=== PATIENT | male | born 1965 | race Caucasian/White ===

== ENCOUNTER 2020-06-30 08:26 | Outpatient (REF) | payer OTHER, SELFPAY ==
--- NOTE | 2020-06-30 08:28 | CT_ITS ---
EXAMINATION: CT ABDOMEN AND PELVIS WITHOUT CONTRAST CLINICAL INFORMATION: Unilateral inguinal hernia COMPARISON: None TECHNIQUE: Multidetector volumetric imaging was performed from the superior aspect of the liver through the pubic symphysis. Sagittal and coronal reformatted images were obtained on the technologist's workstation. This CT examination was performed using dose optimization techniques as appropriate, variously including the following: *Automated exposure control *Adjustment of mA and/or kV according to patient size (this includes techniques or standardized protocols for targeted exams where dose is matched to indication/reason for exam; i.e. extremities or head) *Use of iterative reconstruction technique DLP: 405 mGy-cm FINDINGS: LUNG BASES: The visualized lung bases are unremarkable. No pleural or pericardial effusion identified. LIVER, GALLBLADDER, AND BILIARY TREE: The liver is normal in size, shape, and attenuation. No focal hepatic lesion or biliary ductal dilatation is present. The gallbladder is unremarkable with no evidence of radiopaque gallstones, gallbladder wall thickening, or obvious pericholecystic inflammatory changes. PANCREAS: Unremarkable. SPLEEN: Unremarkable. ADRENAL GLANDS: Unremarkable. KIDNEYS AND URETERS: The kidneys are normal in size, shape, and attenuation. No hydronephrosis, hydroureter, or calculi seen. No significant perinephric stranding. There is a region of cortical thinning within the upper pole related to scarring. BLADDER: Unremarkable. GASTROINTESTINAL TRACT: No dilated loops of large or small bowel are evident. No free abdominal air. No free fluid. No pericolonic inflammatory change. Appendix is visualized without evidence of acute appendicitis. ABDOMINAL WALL: There appear to be bilateral fat-containing direct inguinal hernias right greater than left with lateral crescent sign. No abnormal fluid collection is identified. No significant inflammatory stranding within the fat is seen. LYMPH NODES: No lymphadenopathy is appreciated. VASCULAR: Unremarkable. PELVIC VISCERA: Unremarkable. OSSEOUS STRUCTURES: No suspicious destructive bony lesion identified. There is multilevel degenerative disc disease seen L2 through S1. There is bilateral facet arthropathy seen at the L5-S1 level. CT/CT abdomen pelvis wo con IMPRESSION: Small bilateral fat-containing direct inguinal hernias right greater than left.
== END 2020-06-30 08:27 | disposition home or self-care (01) ==
LOC: HO.CT 08:26
PROVIDERS: PCP Nurse Practitioner Family; Visit Provider Nurse Practitioner Family
DX: K40.90 Unilateral inguinal hernia, without obstruction or gangrene, not specified as recurrent (principal)
CPT/HCPCS: 74176

== ENCOUNTER 2020-10-12 08:14 | Outpatient (REF) | payer OTHER, SELFPAY ==
[2020-10-12 11:40] LABS: Alanine Aminotransferase 19 U/L (0-40); Albumin Level 4.3 g/dL (3.5-5.0); Alkaline Phosphatase 112 U/L (39-117); Anion Gap 12 (12-20); Aspartate Amino Transferase 19 U/L (5-37); Bilirubin Total 0.6 mg/dL (0.0-1.0); Blood Urea Nitrogen 15 mg/dL (9-16); Calcium 8.9 mg/dL (8.4-10.2); Carbon Dioxide 30 mmol/L (22-29); Chloride 104 mmol/L (96-108); Cholesterol 223 mg/dL; Estimated Glomerular Filt Rate > 60; Glucose Fasting 89 mg/dL (60-99); HDL Cholesterol 42 mg/dL; LDL Cholesterol Calculated 160 mg/dl; Potassium 4.8 mmol/L (3.3-5.1); Sodium 141 mmol/L (135-145); Total Protein 7.2 g/dL (6.5-8.0); Triglycerides 109 mg/dL
[2020-10-12 12:04] LABS: Prostate Specific Antigen Scr 1.03 ng/mL (<0.05-4.0); TSH reflex Free T4 1.52 uIU/mL (0.32-4.0)
== END 2020-10-12 08:15 | disposition home or self-care (01) ==
LOC: HO.HMGCLDS 08:14
PROVIDERS: PCP Nurse Practitioner Family; Visit Provider Nurse Practitioner Family
DX: Z00.00 Encounter for general adult medical examination without abnormal findings (principal); Z12.5 Encounter for screening for malignant neoplasm of prostate
CPT/HCPCS: 36415; 80053; 80061; 84153; 84443

== ENCOUNTER → 2020-10-26 12:49 | Outpatient (BNVA) | payer OTHER, SELFPAY | PROVIDERS: PCP Nurse Practitioner Family; Visit Provider Surgery | DX: K40.20 Bilateral inguinal hernia, without obstruction or gangrene, not specified as recurrent (principal) | CPT/HCPCS: 99202 ==

== ENCOUNTER 2021-09-18 10:44 | Outpatient (REF) | payer OTHER, SELFPAY ==
[2021-09-18 14:01] LABS: Cholesterol 233 mg/dL; HDL Cholesterol 41 mg/dL; LDL Cholesterol Calculated 172 mg/dl; Triglycerides 100 mg/dL
== END 2021-09-18 10:45 | disposition home or self-care (01) ==
LOC: HO.HMGCLDS 10:44
PROVIDERS: Visit Provider Nurse Practitioner Family
DX: E78.5 Hyperlipidemia, unspecified (principal)
CPT/HCPCS: 36415; 80061

== ENCOUNTER 2021-10-03 11:30 | Outpatient (REF) | payer OTHER, SELFPAY ==
[2021-10-03 12:30] LABS: MANUAL DIFF FLAG NO
[2021-10-03 12:52] LABS: Basophils Absolute Auto 0.1 X10*3/uL (0.0-0.2); Basophils Percent Auto 0.7 % (0-2); Eosinophils Absolute Auto 0.1 X10*3/uL (0.0-0.4); Eosinophils Percent Auto 1.3 % (0-4); Hematocrit 43.3 % (42.0-52.0); Hemoglobin 13.6 g/dl (14.0-18.0); Imm Gran Abs Auto 0.02 X10*3/uL (0.00-0.03); Imm Gran Pct Auto 0.3 % (0.0-0.4); Lymphocytes Percent Auto 27.7 % (20-40); Mean Corpuscular HGB Conc 31.4 g/dl (31.0-36.0); Mean Corpuscular Hemoglobin 28.9 pg (27.0-33.0); Mean Corpuscular Volume 92.1 fL (80.0-98.0); Mean Platelet Volume 10.3 fL (9.4-12.4); Monocytes Absolute Auto 0.7 X10*3/uL (0.1-1.2); Monocytes Percent Auto 10.1 % (2-11); Neutrophils Absolute Auto 4.3 x10*3/uL (2.0-8.3); Neutrophils Percent Auto 59.9 % (45-73); Platelet Count 311 X10*3/uL (160-400); Red Cell Distribution Width 14.9 % (11.0-16.0); White Blood Count 7.2 X10*3/uL (4.8-10.8)
[2021-10-03 13:54] LABS: Alanine Aminotransferase 28 U/L (0-40); Albumin Level 4.3 g/dL (3.5-5.0); Alkaline Phosphatase 146 U/L (39-117); Anion Gap 13 (12-20); Aspartate Amino Transferase 22 U/L (5-37); Bilirubin Total 0.2 mg/dL (0.0-1.0); Blood Urea Nitrogen 20 mg/dL (9-16); Carbon Dioxide 29 mmol/L (22-29); Chloride 105 mmol/L (96-108); Estimated Glomerular Filt Rate > 60; Glucose Random 97 mg/dL (60-115); Potassium 5.9 mmol/L (3.3-5.1); Sodium 141 mmol/L (135-145); Total Protein 7.4 g/dL (6.5-8.0)
[2021-10-04 08:19] LABS: HBsAGNum1 0.24 S/CO (0.00-0.99); HIV AB/AG Nonreactive (Nonreactive); HIV Num 1 0.08 S/CO (0.00-0.99); Hepatitis B Surface Antigen Negative (Negative)
[2021-10-04 10:05] LABS: HBS Num1 0.15 mIU/mL (0-7.99); HBc Num1 0.13 S/CO (0.00-0.79); Hepatitis B Core Antibody Nonreactive (Nonreactive); ~HepC Num1 0.08 S/CO (0.00-0.79); ~Hepatitis B Surface Antibody NONREACTIVE (Nonreactive); ~Hepatitis C Antibody Nonreactive (Nonreactive)
[2021-10-06 08:57] LABS: Hepatitis A Antibody IgM 0.18 Index (0-0.79); ~Hepatitis A Antibody IgM Nonreactive (Nonreactive)
== END 2021-10-03 11:31 | disposition home or self-care (01) ==
LOC: HO.LAB 11:30
PROVIDERS: PCP Nurse Practitioner Family; Referring Provider Nurse Practitioner Family; Visit Provider Nurse Practitioner
DX: Z11.4 Encounter for screening for human immunodeficiency virus [HIV] (principal); F11.20 Opioid dependence, uncomplicated; F19.10 Other psychoactive substance abuse, uncomplicated; Z80.0 Family history of malignant neoplasm of digestive organs
CPT/HCPCS: 36415; 80053; 85025; 86704; 86706; 86709; 86803; 87340; 87389; 99202

== ENCOUNTER 2022-01-03 09:36 | Day surgery (SDC) | payer OTHER, SELFPAY ==
[2021-12-29 14:01] VITALS: BMI 26.5
--- NOTE | 2022-01-02 13:30 | HO.ANESPROP2 ---
HPI - Anesthesia Eval Consult details Narrative: 56yo F for Colonoscopy hx of polysub - suboxone daily, ? crack cocaine use PMF Active Problems Active Problems: All Active Problems (Updated 12/29/21 @ 14:00 by Evelyne Alonso RN) Right inguinal hernia (Acute) Bilateral inguinal hernia (Acute) Anxiety (Acute) Chest pain (Acute) Family history of colon cancer (Acute) Personal history of nicotine dependence (Acute) Opioid dependence (Acute) IV drug abuse (Acute) PTSD (post-traumatic stress disorder) (Acute) Dyslipidemia (Acute) Past Medical History Medical History Arthritis Back pain COPD (chronic obstructive pulmonary disease) Dizziness, nonspecific Dyslipidemia Family history of colon cancer History of femur fracture (~10/2020) History of fracture of left ankle (~10/2020) IV drug abuse Opioid dependence Personal history of nicotine dependence PTSD (post-traumatic stress disorder) Right inguinal hernia Family History Family History Father CVD (cardiovascular disease) Substance use disorder Mother Colon cancer Stroke Diabetes mellitus Substance use disorder Sister Mental health disorder Surgical History Surgical History History of colonoscopy History of hip surgery (~2020) History of total right hip arthroplasty (~2020) History of umbilical hernia repair (~1993) Social History Social History (Updated 12/29/21 @ 13:58 by Evelyne Alonso RN) Housing: House Alcohol intake: never Patient Tobacco Use Status: Current everyday Tobacco user Tobacco use type: Cigarette Cigarette Packs Per Day: 0.75 Cigarettes Per Day: 15.0 Years Smoked: 40 e-Cigarette/Vaping Use: Never Used Second Hand Smoke Exposure: No Substance Use Type: Crack/Cocaine, Former Substance User and Opiates service: No Current occupational status: unemployed Meds Allergies Allergy/AdvReac Type Severity Reaction Status Date / Time No Known Allergies Allergy Verified 10/24/21 12:22 [No Known Allergies*] Home Medications Medication Instructions Recorded Confirmed Last Taken Type dextroamphetamine-amphetamine ER 2 cap PO QAM 06/20/20 12/29/21 Unknown History 30 mg 24hr capsule,extend release gabapentin 300 mg capsule 300 mg PO DAILY PRN Pain, Moderate 12/29/20 12/29/21 Unknown History lidocaine 5 % topical patch 1 patch topical DAILY 12/29/20 12/29/21 Unknown History nicotine (polacrilex) 4 mg buccal 4 mg PO BID PRN Nicotine Cravings 12/29/20 12/29/21 Unknown History lozenge buprenorphine 8 mg-naloxone 2 mg 1 film sublingual BID 04/13/21 12/29/21 Unknown History sublingual film varenicline 0.5 mg tablet 0.5 mg PO DAILY 10/24/21 12/29/21 Unknown History Exam Exam Date and Time: January 02, 2022 1330 Height,Weight and Vital Signs: Height 5 ft 10 in Weight 83.915 kg Pertinent Lab Results Pertinent Lab Results: Laboratory Tests 10/03/21 12:28 WBC 7.2 Hgb 13.6 L Hct 43.3 Plt Count 311 Assessment and Plan Assessment Anesthesia Assessment: Chart Reviewed
[2022-01-03 10:08] VITALS: BP 123/105; PULSE 98; RESP 18; TEMP 36.8; O2SAT 96
--- NOTE | 2022-01-03 10:24 | MHC.SHP ---
Pre-Procedural Eval Section A Date of Service: 01/03/22 Section B Chief Complaint: FH of CRC-screening Relevant Family History (Specify if Yes): Yes Relevant Social History: Tobacco Use (cocaine use ) Present Medications: see Short Stay Collaborative assessment Medical History: Significant History (Arthritis Back pain COPD (chronic obstructive pulmonary disease) Dizziness, nonspecific Dyslipidemia Family history of colon cancer History of femur fracture (~10/2020) History of fracture of left ankle (~10/2020) IV drug abuse Opioid dependence Personal history of nicotine dependence PTSD (post-tra) History of Previous Operations: Relevant previous surgery/procedure and date(s) (History of colonoscopy History of hip surgery (~2020) History of total right hip arthroplasty (~2020) History of umbilical hernia repair (~1993)) Allergies: Allergies Allergy/AdvReac Type Severity Reaction Status Date / Time No Known Allergies Allergy Verified 10/24/21 12:22 [No Known Allergies*] Review of Systems Sugical H&P ROS: Negative: Constitution, Cardiovascular, Respiratory, Neurological, Psychiatric, Hem-Onc, Allergic/Immunologic, Gastrointestinal, Genitourinary, Musculoskeletal, Integumentary, Endocrine and Eyes/Ears/Nose/Throat Exam Surgical H&P Exam: Normal: HEENT, Normal: Heart, Normal: Lungs, Normal: Extremities, Normal: Abdomen, Normal: Skin and Normal: Neurological Plan Diagnosis/Plan: Unchanged I have reviewed the history and physical and performed a pertinent physical examination on my patient. No changes have occurred unless specified.
[2022-01-03 10:25] LABS: Anion Gap 15 (12-20); Carbon Dioxide 24 mmol/L (22-29); Chloride 105 mmol/L (96-108); Potassium 4.7 mmol/L (3.3-5.1); Sodium 139 mmol/L (135-145)
[2022-01-03 10:28] LABS: Amphetamine Screen Urine POSITIVE (Not Detect); Barbiturates, Urine Not Detected (Not Detect); Benzodiazepines Screen Urine Not Detected (Not Detect); Cannabinoid Screen Urine POSITIVE (Not Detect); Cocaine Screen Urine Not Detected (Not Detect); Fentanyl, urine Not Detected (Not Detect); Opiate Screen Urine Not Detected (Not Detect); Phencyclidine Screen Urine Not Detected (Not Detect)
--- NOTE | 2022-01-03 10:32 | P.CONAN_ITS ---
[facility] Active Problems Active Problems: All Active Problems (Updated 12/29/21 @ 14:00 by Evelyne Alonso RN) Right inguinal hernia (Acute) Bilateral inguinal hernia (Acute) Anxiety (Acute) Chest pain (Acute) Family history of colon cancer (Acute) Personal history of nicotine dependence (Acute) Opioid dependence (Acute) IV drug abuse (Acute) PTSD (post-traumatic stress disorder) (Acute) Dyslipidemia (Acute) Past Medical History Medical History Arthritis Back pain COPD (chronic obstructive pulmonary disease) Dizziness, nonspecific Dyslipidemia Family history of colon cancer History of femur fracture (~10/2020) History of fracture of left ankle (~10/2020) IV drug abuse Opioid dependence Personal history of nicotine dependence PTSD (post-traumatic stress disorder) Right inguinal hernia Family History Family History Father CVD (cardiovascular disease) Substance use disorder Mother Colon cancer Stroke Diabetes mellitus Substance use disorder Sister Mental health disorder Family history of problems with anesthesia: No Surgical History Surgical History History of colonoscopy History of hip surgery (~2020) History of total right hip arthroplasty (~2020) History of umbilical hernia repair (~1993) History of Problems with Anesthesia: No Social History Social History (Updated 12/29/21 @ 13:58 by Evelyne Alonso RN) Housing: House Alcohol intake: never Patient Tobacco Use Status: Current everyday Tobacco user Tobacco use type: Cigarette Cigarette Packs Per Day: 0.75 Cigarettes Per Day: 15.0 Years Smoked: 40 Smoked in Last 30 Days: Yes e-Cigarette/Vaping Use: Never Used Patient Interested in Nicotine Replacement: Yes Patient Given Instructions on How to Stop Smoking: Yes Date Education Initiated: 12/29/21 Second Hand Smoke Exposure: No Use of substances other than those prescribed or required for medical reasons: No Substance Use Type: Crack/Cocaine, Former Substance User and Opiates Substance Use Type Other:: COCAINE/IV OPIATE DRUG ABUSE Are you DNR?: No Advance Directives: No Advance Directives Information Provided: Yes Advance Directives on File: No Recently lost weight without trying: No Nutrition Risks: No Nutritional Risk service: No Current occupational status: unemployed Meds Allergies Allergy/AdvReac Type Severity Reaction Status Date / Time No Known Allergies Allergy Verified 10/24/21 12:22 [No Known Allergies*] Active Medications: Current Medications Albuterol Sulfate (Albuterol Sulfate (0.083%) 2.5 Mg/3 Ml Vial.Neb) 2.5 mg INHALE ONCE PRN PRN Reason: Shortness of Breath/Wheezing Lactated Ringer's (Lr) 1,000 mls @ 100 mls/hr IVCONT .Q10H [facility] Home Medications Medication Instructions Recorded Confirmed Last Taken Type dextroamphetamine-amphetamine ER 2 cap PO QAM 06/20/20 12/29/21 Unknown History 30 mg 24hr capsule,extend release gabapentin 300 mg capsule 300 mg PO DAILY PRN Pain, Moderate 12/29/20 12/29/21 Unknown History lidocaine 5 % topical patch 1 patch topical DAILY 12/29/20 12/29/21 Unknown History nicotine (polacrilex) 4 mg buccal 4 mg PO BID PRN Nicotine Cravings 12/29/20 12/29/21 Unknown History lozenge buprenorphine 8 mg-naloxone 2 mg 1 film sublingual BID 04/13/21 12/29/21 Unknown History sublingual film varenicline 0.5 mg tablet 0.5 mg PO DAILY 10/24/21 12/29/21 Unknown History Exam Exam Date and Time: January 03, 2022 1032 Height,Weight and Vital Signs: Height 5 ft 10 in Weight 83.915 kg Last Vital Signs Temp 98.3 F 01/03/22 10:08 Pulse 98 01/03/22 10:08 Resp 18 01/03/22 10:08 BP 123/105 H 01/03/22 10:08 Pulse Ox 96 01/03/22 10:08 O2 Del Method 01/03/22 10:08 Pertinent Lab Results Pertinent Lab Results: Laboratory Tests 01/03/22 01/03/22 09:35 10:06 Sodium 139 Potassium 4.7 D Chloride 105 Carbon Dioxide 24 Anion Gap 15 Urine Opiates Screen Not Detected Urine Fentanyl Screen Not Detected Ur Barbiturates Screen Not Detected Ur Phencyclidine Scrn Not Detected Ur Amphetamines Screen POSITIVE H U Benzodiazepines Scrn Not Detected Urine Cocaine Screen Not Detected U Marijuana (THC) Screen POSITIVE H Airway Mallampati Class: II TM Dist: >3cm Neck ROM: Full Heart: rrr Lungs: cta Assessment and Plan Assessment Anesthesia Assessment: Anesthesia Plan Discussed and Chart Reviewed Final Anesthetic Review Family History of Problems with Anesthesia: No History of Problems with Anesthesia: No NPO: Yes ASA Class: III Final Preanesthetic Review: No Changes in Pt Med Stat, Meds/Allgs Chart Reviewed and Consent Obtained/Reviewed Patient Risk: Intermediate Procedure Risk: Intermediate Anesthetic Plan Anesthetic Plan: MAC: Disposition: Standard PACU
[2022-01-03] MEDS: Lactated Ringers 1,000 ML 100 ML IVCONT (10:39)
--- NOTE | 2022-01-03 10:39 | P.BOP_ITS ---
Brief Operative Note Date of Service: 01/03/22 Pre-op diagnosis: FH of CRC-screening Post-op diagnosis: same Procedure: see op note Surgeon: Guanako Drew MD Anesthesia: MAC Was an Signals Officer used for this Procedure?: No Estimated blood loss (mL): 0 Condition: stable Disposition: PACU
--- NOTE | 2022-01-03 10:39 | P.OP_ITS ---
Operative Note Operative Note Date of Service: 01/03/22 Narrative: Operative Information Procedure Description: Colonoscopy Indication: FH of CRC-screening Anesthesia: MAC COLONOSCOPY Instrument: Olympus variable stiffness pediatric scope 190L Colonoscopy Monitoring: Vital signs and clinical assessment, continuous EKG monitoring, Pulse oximetry, Carbon Dioxide monitoring and blood pressure monitoring were done throughout the procedure. Colon withdrawal time was 10 minutes. Procedure: The patient was placed in the left lateral decubitis position and pre-procedure medications were administered. After a digital rectal examination of the ano-rectum, the video colonoscope was inserted into the rectum and advanced through the colon to the cecum/TI. The colonoscope was slowly withdrawn in a retrograde panoramic fashion and the colon mucosa was carefully examined including a retroflexed view of the rectum. Findings and interventions are described below. Procedure Difficulty: easy Findings: Terminal Ileum-normal Cecum:normal Ascending Colon: normal Transverse Colon -normal Descending Colon:normal Sigmoid Colon: few diverticula seen, 10 mm sessile polyp removed with cold snare Rectum: Retroflexion with small internal hemorrhoids, grade I Anorectum - normal Colon preparation: [place] Bowel Preparation Scale Right colon; 2 Transverse colon: 2 Left colon; 2 (0 = Unprepared colon segment with mucosa not seen due to solid stool that cannot be cleared. 1 = Portion of mucosa of the colon segment seen, but other areas of the colon segment not well seen due to staining, residual stool and/or opaque liquid. 2 = Minor amount of residual staining, small fragments of stool and/or opaque liquid, but mucosa of colon segment seen well. 3 = Entire mucosa of colon segment seen well with no residual staining, small fragments of stool or opaque liquid) Impression and Post Procedure Diagnosis: polyp internal hemorrhoids diverticular disease Plan: High fiber diet leaflet Avoid straining at stool, epsom salts and sitz bath, anusol supps or cream Repeat Colonoscopy in 5 years due to polyp or earlier if clinically indicated Above findings were reviewed with the patient and relevant handouts were provided if indicated.
[2022-01-03 11:09] VITALS: BP 101/61; PULSE 71; RESP 16; TEMP 36.4; O2SAT 92
[2022-01-03 11:24] VITALS: BP 114/78; PULSE 81; RESP 16; TEMP 36.4; O2SAT 98
== END 2022-01-03 12:40 ==
PROVIDERS: Nurse Practitioner; PCP Nurse Practitioner Family; Visit Provider Internal Medicine Gastroenterology
PROC: 0DJD8ZZ Inspection of Lower Intestinal Tract, Via Natural or Artificial Opening Endoscopic (ICD-10-PCS; CPT 45378; principal; 2022-01-03 11:40)
DX: Z12.11 Encounter for screening for malignant neoplasm of colon (principal); Z86.010 Personal history of colon polyps; Z80.0 Family history of malignant neoplasm of digestive organs; D12.5 Benign neoplasm of sigmoid colon; K57.30 Diverticulosis of large intestine without perforation or abscess without bleeding; K64.0 First degree hemorrhoids; E78.00 Pure hypercholesterolemia, unspecified; M87.851 Other osteonecrosis, right femur; Z96.641 Presence of right artificial hip joint; F43.10 Post-traumatic stress disorder, unspecified; Z79.899 Other long term (current) drug therapy; F17.210 Nicotine dependence, cigarettes, uncomplicated; F11.20 Opioid dependence, uncomplicated
CPT/HCPCS: 45385; 36415; 80051; 80307; 88305

== ENCOUNTER 2022-01-12 13:49 | Outpatient (REF) | payer OTHER, SELFPAY ==
--- NOTE | ~2022-01-12 | CT_ITS ---
EXAMINATION: CT CHEST SCREENING CLINICAL INFORMATION: Current smoker. 40 pack year history. COMPARISON: None. TECHNIQUE: Multidetector volumetric CT imaging of the chest is performed without contrast using low dose technique. Additional 2D coronal and sagittal reformatted images and axial 3D maximum intensity projection (MIP) images are generated on the CT workstation. This CT examination was performed using dose optimization techniques as appropriate, variously including the following: *Automated exposure control *Adjustment of mA and/or kV according to patient size (this includes techniques or standardized protocols for targeted exams where dose is matched to indication/reason for exam; i.e. extremities or head) *Use of iterative reconstruction technique DLP: 63 mGy-cm FINDINGS: LUNGS: There is a 3 mm peripheral or subpleural right upper lobe nodule axial image 173 series 5. The lungs are otherwise clear. Mild paraseptal emphysema. No endobronchial or endotracheal lesion. MEDIASTINUM: Mild coronary artery calcification. The mediastinum is otherwise normal. PLEURA: There is no pleural effusion. No pleural mass or thickening. AXILLA: No lymphadenopathy. UPPER ABDOMEN: Unremarkable OSSEOUS STRUCTURES: Old right posterior lateral sixth rib fracture. Degenerative changes of the spine. CT/CT lung screening IMPRESSION: Mild emphysema. 3 mm right upper lobe nodule. Mild coronary artery calcification. ASSESSMENT: Lung-RADS category 2: Benign RECOMMENDATION: Annual low-dose chest CT follow-up recommended.
== END 2022-01-12 13:50 | disposition home or self-care (01) ==
LOC: HO.CT 13:49
PROVIDERS: Visit Provider Physician Assistant Medical
DX: Z12.2 Encounter for screening for malignant neoplasm of respiratory organs (principal); F17.210 Nicotine dependence, cigarettes, uncomplicated
CPT/HCPCS: 71271; G0296

== ENCOUNTER → 2022-02-22 09:01 | Outpatient (BNVA) | payer OTHER, SELFPAY | PROVIDERS: PCP Nurse Practitioner Family; Visit Provider Nurse Practitioner | DX: D12.6 Benign neoplasm of colon, unspecified (principal); Z80.0 Family history of malignant neoplasm of digestive organs | CPT/HCPCS: 99212 ==